=== PATIENT | female | born 1945 | race African-American/Black ===

== ENCOUNTER 2020-01-16 13:42 | Outpatient (RCR) | payer MEDICARE, SELFPAY ==
[2020-01-16 14:14] VITALS: BMI 49.4
== END 2020-04-03 10:19 | disposition home or self-care (01) ==
LOC: ANHWOC 13:42
PROVIDERS: PCP Internal Medicine; Visit Provider Internal Medicine
DX: L89.612 Pressure ulcer of right heel, stage 2 (principal)
CPT/HCPCS: 99212; G0463

== ENCOUNTER 2020-02-03 15:10 | Observation (INO) | payer MEDICARE, SELFPAY ==
[2020-02-03] VITALS (22 sets, daily range): BP systolic 134–144; BP diastolic 57–73; PULSE 63–84; RESP 11–24; TEMP 36.3–36.8; O2SAT 83–99; BMI 48.6
--- NOTE | ~2020-02-03 | XR_ITS ---
XR knee RT 3V 02/03/2020 18:24 Indication: Right leg pain and swelling Procedure: 3 views right knee Comparison: No prior studies for comparison. Findings: There is severe tricompartment osteoarthritis of the right knee. No acute fracture or traum atic malalignment. Large amount of diffuse subcutaneous edema. No foreign bodies. Impression: 1: Severe tricompartment osteoarthritis of the right knee. Reviewed, dictated and finalized at location A. Impression: 1: Severe tricompartment osteoarthritis of the right knee.
--- NOTE | ~2020-02-03 | XR_ITS ---
XR foot RT min 3V 02/03/2020 18:23 Indication: Right foot pain and swelling Procedure: 3 views of the right foot Comparison: No prior studies for comparison. Findings: There is a large amount of soft tissue swelling surrounding the foot. Osteopenia. No acute fracture or traumatic malalignment. Lisfranc joint is intact. No foreign bodies. Impression: 1: Large amount of soft tissue swelling of the right ankle and foot. No acute fracture. Reviewed, dictated and finalized at location A. Impression: 1: Large amount of soft tissue swelling of the right ankle and foot. No acute f racture.
--- NOTE | ~2020-02-03 | US_ITS ---
US renal BI 02/04/2020 16:45 Procedure: Realtime transabdominal ultrasound of the kidneys and bladder. Indication: Acute renal insufficiency Comparison: No prior studies for comparison. Findings: Renal echotexture is normal bilaterally without hydronephrosis, contour deforming mass or r enal calculus. The right kidney measures 10.2 cm and left kidney measures 10.1 cm. Bladder within no rmal limits. There is a Han catheter present. Impression: 1: Unremarkable renal ultrasound. No stones, masses or hydronephrosis. Reviewed, dictated and finalized at location A. Impression: 1: Unremarkable renal ultrasound. No stones, masses or hydronephrosis.
--- NOTE | ~2020-02-03 | XR_ITS ---
XR hip RT 2V w AP pelvis 02/03/2020 18:24 INDICATION: Right leg and hip pain and swelling PROCEDURE: AP pelvis and 2 views right hip COMPARISON: No prior studies for comparison. FINDINGS: Fracture, dislocation or subluxation is not identified. Pelvic rings are intact. The soft t issues appear within normal limits. No foreign bodies are identified. IMPRESSION: 1: NO ACUTE BONE OR JOINT ABNORMALITY IDENTIFIED. Reviewed, dictated and finalized at location A.
--- NOTE | ~2020-02-03 | US_ITS ---
EXAMINATION:US venous doppler LE RT INDICATION:Right leg pain and swelling TECHNIQUE: Multiple grayscale, color flow and Doppler images of the right lower extremity deep venous systems were obtained and reviewed. COMPARISON:No prior studies for comparison. FINDINGS: The common femoral, superficial femoral and popliteal veins demonstrate normal respiratory variation, augmentation and compressibility. Color flow is also seen within the posterior tibial, pe roneal, greater saphenous and profunda veins. IMPRESSION: 1: No lower extremity deep venous thrombosis. Reviewed, dictated and finalized at location A.
--- NOTE | 2020-02-03 16:35 | PC.NURSE ---
attempted to draw labs and place iv no success at this time charger operator aware, will inform provider when they sign up
--- NOTE | 2020-02-03 17:13 | ED.EXTPRO ---
HPI - Extremity Problem General Chief complaint: Extremity Problem,Nontraumatic <Bri Jackson PA-C - Last Filed: 02/03/20 21:55> Stated complaint: LEG SWELLING, PAIN, LYMPHADEMA <Bri Jackson PA-C - Last Filed: 02/03/20 21:55> Time Seen by Provider: 02/03/20 16:41 <KENYA Winston Last Filed: 02/03/20 21:55> Source: patient <KENYA Winston Last Filed: 02/03/20 21:55> Mode of arrival: ambulatory <KENYA Winston Last Filed: 02/03/20 21:55> Limitations: other (poot historian) <Bri Jackson PA-C - Last Filed: 02/03/20 21:55> History of Present Illness HPI Narrative: This is a 74 year old female that presents to the ER for right leg swelling since last night. Reports pain in the leg. Reports the pain has made it difficult for her to ambulate. Pain is mostly in the heel. No known injury or trauma. Denies fever, history of blood clots, chest pain or shortness of breath. <Bri Jackson PA-C - Last Filed: 02/03/20 21:55> Related Data Home medications: Home Medications Medication Instructions Recorded Confirmed cholecalciferol (vitamin D3) 125 125 mcg PO DAILY 10/24/19 mcg (5,000 unit) capsule cyanocobalamin (vitamin B-12) 500 500 mcg PO DAILY 10/24/19 mcg tablet <Bri Jackson PA-C - Last Filed: 02/03/20 21:55> Allergies/Adverse reactions: Allergies Allergy/AdvReac Type Severity Reaction Status Date / Time [place] And Derivatives Allergy Intermediate Itching Verified 02/03/20 15:21 hydrochlorothiazide AdvReac Intermediate Difficulty Verified 02/03/20 15:21 Breathing <KENYA Winston Last Filed: 02/03/20 21:55> Review of Systems Review of Systems: Narrative: CONSTITUTIONAL: Denies fever CARDIOVASCULAR: Denies chest pain RESPIRATORY: Denies dyspnea. SKIN: Denies rash MUSCULOSKELETAL: Denies joint pain, or myalgia. <Bri Jackson PA-C - Last Filed: 02/03/20 21:55> All systems reviewed & are unremarkable except as noted in HPI and below <Bri Jackson PA-C - Last Filed: 02/03/20 21:55> [facility] Past Medical History Medical History: Medical History (Updated 02/03/20 @ 21:53 by Bri Jackson PA-C) Colon cancer screening Essential hypertension Lymphedema Mild intermittent asthma without complication Morbid (severe) obesity due to excess calories <Bri Jackson PA-C - Last Filed: 02/03/20 21:55> Social History Social History: Social History Smoking status: Never smoker Second hand tobacco smoke exposure: No Alcohol intake: never Gender identity (if verbalized by the patient): Female <Bri Jackson PA-C - Last Filed: 02/03/20 21:55> Exam Narrative: Exam Narrative: GENERAL: Well-appearing, obese, and in no acute distress. HEAD: Normocephalic, atraumatic. EYES: EOMI. CHEST: Clear to auscultation. No respiratory distress. No wheezes rales or rhonchi HEART: Regular rate and rhythm. No murmur heard. Normal peripheral pulses. EXTREMITIES: Normal range of motion. Edema to the bilateral lower extremities (R>L). Normal left DP pulse, difficult to obtain in the right foot by palpation (was able to easily doppler). Right posterior calf with small ulceration with mild surrounding erythema SKIN: Warm, dry, no rash. NEURO: No focal deficits. Alert and oriented x3. PSYCH: Normal mood and affect <Bri Jackson PA-C - Last Filed: 02/03/20 21:55> Course AUTOMATION TEST ENGINEER/PA Physician Supervision For this patient encounter, I reviewed the AUTOMATION TEST ENGINEER or PA documentation, treatment plan, and medical decision making; and I had [id number] time with this patient. <Ana Queen MD - Last Filed: 02/03/20 20:49> Vital Signs Vital signs: Vital Signs Temperature 98.2 F 02/03/20 15:16 Pulse Rate 72 02/03/20 15:16 Respiratory Rate 17 02/03/20 15:16 Blood Pressure 144/65 H 02/03/20 15:16 Pulse Oximetry 98 02/03/20 15:16 Temperature 97.4 F L 02/03/20 15:36 Pul
[2020-02-03] MEDS: ACETAMINOPHEN 500 MG TABLET 1000 MG PO (17:21)
[2020-02-03 17:25] LABS: Basophils Percent Auto 0.3 % (0.2-1.2); Eosinophils Absolute Auto 0.2 K/mm3 (0-0.3); Eosinophils Percent Auto 1.6 % (0-4.4); Hematocrit 33.6 % (37.0-47.0); Hemoglobin 11.2 g/dL (12.0-15.0); Immature Granulocyte Absolute 0.02 K/mm3 (0.00-0.031); Immature Granulocyte Percent A 0.2 % (0-0.5); Immature Platelet Fraction Pct 8.3 % (0.9-11.2); Lymphocytes Absolute Auto 1.75 K/mm3 (0.9-3.2); Lymphocytes Percent Auto 16.9 % (18.3-44.2); Mean Corpuscular HGB Conc 33.3 g/dl (32-36); Mean Corpuscular Hemoglobin 28.8 pg (26-34); Mean Corpuscular Volume 86.4 fl (80-100); Mean Platelet Volume 12.8 fl (7.4-10.4); Monocytes Absolute Auto 0.7 K/mm3 (0.1-0.6); Monocytes Percent Auto 6.6 % (2.6-8.5); Neutrophils Absolute Auto 7.7 K/mm3 (1.3-6.7); Neutrophils Percent Auto 74.4 % (45.5-73.1); Platelet Count Result 201 k/mm3 (150-375); Red Blood Count 3.89 M/mm3 (4.2-5.4); Red Cell Distribution Width 14.6 % (11.5-14.5); White Blood Count 10.3 K/mm3 (4.5-10.0)
[2020-02-03 17:50] LABS: Erythrocyte Sedimentation Rate 27 mm/hr (0-20); NT Pro B Type Natriuretic Pept 101 PG/ML (5-100)
[2020-02-03 17:55] LABS: CRP 2.4 mg/dL (<1.0)
[2020-02-03 19:11] LABS: INR 1.3; Prothrombin Time 15.6 Seconds (11.1-14.7)
[2020-02-03 19:12] LABS: Partial Thromboplastin Time 33.6 SECONDS (22.3-36.8)
[2020-02-03 19:13] LABS: Anion Gap 11 mmol/L (8-16); Blood Urea Nitrogen 35 mg/dL (7-17); Calcium 9.2 mg/dL (8.4-10.2); Carbon Dioxide 22 mmol/L (22-30); Chloride 103 mmol/L (98-107); Estimated CRCL calculation 43 ml/min; Estimated Glomerular Filt Rate 49; Glucose 90 mg/dL (65-105); Potassium 3.5 mmol/L (3.4-5.0); Sodium 136 mmol/L (137-145)
[2020-02-03 19:14] LABS: Lactic Acid Reflex 1.5 mmol/L (0.7-2.1)
--- NOTE | 2020-02-03 20:50 | PC.NURSE ---
pt currently refusing antibiotics and fluids at this time. Would like to speak with KHANH Gregory per family and pt request.
[2020-02-03] MEDS: SODIUM CHLORIDE 0.9% IV 500 ML 999 ML IV CONT (21:37)
--- NOTE | 2020-02-03 23:14 | PC.NURSE ---
This patient, Varsha Griffith, was admitted to 3 [facility] Surg Room 301-01. Patient/family oriented to hospital policies and general routines including ID bracelet, bed and alarms, visiting hours, pain management, procedures, bathroom and other care routines, personal items, smoking policy, room service/diet, and visiting hours. Valuables list has been completed. Information on how to activate the Rapid Response Team has been discussed. Patient/Family are encouraged to report perceived risks to care and to ask questions if they do not understand what they are told or what they should do.
[2020-02-04 05:41] VITALS: BP 149/61; PULSE 71; RESP 20; TEMP 36.5; O2SAT 99
--- NOTE | 2020-02-04 06:22 | PC.NURSE ---
0440 assisted pt to bsc using huma steady, pt tried to urinate for over an hour and kept refusing this rn and director custom to assist her off bsc anmd back to bed insisting that she felt she was still urinating. when pt did finally allowus to assist her back to bed i then did a bladder scan that showed greater than 600. dr perea was informed and orders received for indwelling king cath insert. this rn inserted king using sterile technique, meeting no resistance got immediate clear yellow urine return, pt tolerated well.
[2020-02-04 06:40] LABS: Add Urine Microscopic? YES; Appearance Urine Clear (Clear); Bilirubin Urine Negative (Negative); Blood Urine Negative (Negative); Color Urine Straw (Yellow); Glucose Urine UA Negative (Negative); Ketones Urine Negative (Negative); Leukocyte Esterase Ur Negative LEU/UL (Negative); Nitrate Urine Negative (Negative); Protein Urine Negative (Negative); Specific Grav Ur 1.011 (1.001-1.035); Squamous Epithelial Cell Urine Rare /hpf (Few); Urobilinogen Urine Negative mg/dL (<2.0); WBC Urine 0-3 /hpf
[2020-02-04 09:54] VITALS: PULSE 68
[2020-02-04] MEDS: carvediloL 25 MG TABLET PO ×2 (09:54→22:12)
[2020-02-04] MEDS: LOSARTAN POTASSIUM 100 MG TABLET PO (09:55)
[2020-02-04] MEDS: INDAPAMIDE 1.25 MG TABLET 2.5 MG PO (09:55)
[2020-02-04] MEDS: FUROSEMIDE 40 MG TABLET PO (09:55)
[2020-02-04 14:00] VITALS: BP 120/55; PULSE 67; RESP 16; TEMP 37.1; O2SAT 99
--- NOTE | 2020-02-04 15:23 | PCDIET ---
Screen for pressure ulcer received. Wound nurse and pt reports that these are blister on her heels, not PU. She is eating 60% of meals. States appetite good. Agree with heart healthy diet. We will follow weekly to monitor for adequate PO intake.
--- NOTE | 2020-02-04 15:38 | PM.IMHP ---
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 She does not remember any trauma to that area. Denies fever or chills, no nausea , vomiting, no diarrhea, no cough, no chest pain. She was found to have urinary retention in the ER, a Han catheter was placed with almost 600 ml output. Currently other than the pain on her right heel she does not have more complains, she usually ambulates with a wheeled walker but lately she has found that difficult to do due to her pain, she denies falls. Review of Systems Review of Systems: All systems reviewed & are unremarkable except as noted in HPI and below PMFSH Past Medical History Medical History Colon cancer screening Essential hypertension Lymphedema Mild intermittent asthma without complication Morbid (severe) obesity due to excess calories Social History Social History Smoking status: Never smoker Second hand tobacco smoke exposure: No Alcohol intake: never Substance use: never Substance use type: does not use Living arrangements: alone Occupation/Education: retired Gender identity (if verbalized by the patient): Female Spiritual care concerns: No Meds Home Medications and Allergies Home Medications Medication Instructions Recorded Confirmed Type losartan 100 mg tablet 100 mg PO DAILY #90 tablet 10/24/19 02/03/20 Rx carvedilol 25 mg tablet 25 mg PO Q12H #180 tablet 01/01/20 02/03/20 Rx furosemide 40 mg tablet 40 mg PO QAM #30 tablet 01/20/20 02/03/20 Rx potassium chloride 20 mEq 20 meq PO DAILY #30 tablet 01/20/20 02/03/20 Rx tablet,extended release(part/cryst) indapamide 2.5 mg PO BID 02/03/20 02/03/20 History Allergies Allergy/AdvReac Type Severity Reaction Status Date / Time [place] And Derivatives Allergy Intermediate Itching Verified 02/03/20 15:21 hydrochlorothiazide AdvReac Intermediate Difficulty Verified 02/03/20 15:21 Breathing Vital Signs Vital Signs - 24 hr 02/03/20 16:10 02/03/20 16:42 02/03/20 16:45 Temperature Pulse Rate 69 66 65 Respiratory Rate 16 14 13 Blood Pressure Pulse Oximetry 02/03/20 17:18 02/03/20 17:30 02/03/20 17:52 Temperature Pulse Rate 66 71 Respiratory Rate 17 16 Blood Pressure Pulse Oximetry 98 95 89 L 02/03/20 18:00 02/03/20 18:20 02/03/20 18:30 Temperature Pulse Rate 63 76 84 Respiratory Rate 11 L 16 19 Blood Pressure Pulse Oximetry 96 83 L 02/03/20 18:46 02/03/20 19:02 02/03/20 19:16 Temperature Pulse Rate 67 67 69 Respiratory Rate 18 15 20 Blood Pressure Pulse Oximetry 02/03/20 19:30 02/03/20 20:24 02/03/20 20:30 Temperature Pulse Rate 75 77 76 Respiratory Rate 14 19 24 H Blood Pressure Pulse Oximetry 02/03/20 20:45 02/03/20 21:30 02/03/20 21:45 Temperature Pulse Rate 77 77 76 Respiratory Rate 17 19 14 Blood Pressure Pulse Oximetry 02/03/20 23:00 02/03/20 23:03 02/04/20 05:41 Temperature 97.6 F 97.7 F Pulse Rate 71 81 71 Respiratory Rate 20 19 20 Blood Pressure 134/57 L 136/73 149/61 H Pulse Oximetry 97 94 99 02/04/20 09:54 Temperature Pulse Rate 68 Respiratory Rate Blood Pressure Pulse Oximetry Exam Const: General: comfortable and no acute distress HENMT: General nose exam: Normal nares present Mouth: Yes moist mucous membranes Eyes: General: appearance normal, both eyes and all related structures Neck: Neck: supple and no JVD Resp: Effort & Inspection: normal respiratory effort Auscultation: clear to auscultation bilaterally and diminished lung sounds Cardio: Rate: regular rate Rhythm:
[2020-02-04 22:00] VITALS: BP 123/53; PULSE 68; RESP 18; TEMP 36.6; O2SAT 99
[2020-02-04 22:12] VITALS: PULSE 68
[2020-02-04] MEDS: HEPARIN SODIUM 5,000 UNITS/ML VIAL 5000 UNITS SUB-Q (22:13)
[2020-02-05] MEDS: ACETAMINOPHEN 325 MG TABLET 650 MG PO ×2 (01:20→13:30)
[2020-02-05 06:00] VITALS: BP 127/57; PULSE 62; RESP 20; TEMP 36.4; O2SAT 98
[2020-02-05 06:08] LABS: SARS-CoV-2 RNA PCR Negative
[2020-02-05 06:15] LABS: Basophils Percent Auto 0.3 % (0.2-1.2); Eosinophils Absolute Auto 0.2 K/mm3 (0-0.3); Eosinophils Percent Auto 2.3 % (0-4.4); Hemoglobin 9.2 g/dL (12.0-15.0); Immature Granulocyte Absolute 0.02 K/mm3 (0.00-0.031); Immature Granulocyte Percent A 0.3 % (0-0.5); Lymphocytes Absolute Auto 1.73 K/mm3 (0.9-3.2); Lymphocytes Percent Auto 24.9 % (18.3-44.2); Mean Corpuscular HGB Conc 32.9 g/dl (32-36); Mean Corpuscular Hemoglobin 28.5 pg (26-34); Mean Corpuscular Volume 86.7 fl (80-100); Mean Platelet Volume 10.7 fl (7.4-10.4); Monocytes Absolute Auto 0.5 K/mm3 (0.1-0.6); Monocytes Percent Auto 6.8 % (2.6-8.5); Neutrophils Absolute Auto 4.5 K/mm3 (1.3-6.7); Neutrophils Percent Auto 65.4 % (45.5-73.1); Platelet Count Result 181 k/mm3 (150-375); Red Blood Count 3.23 M/mm3 (4.2-5.4); Red Cell Distribution Width 14.4 % (11.5-14.5); White Blood Count 6.9 K/mm3 (4.5-10.0)
[2020-02-05 06:35] LABS: Anion Gap 3 mmol/L (8-16); Blood Urea Nitrogen 23 mg/dL (7-17); Calcium 8.5 mg/dL (8.4-10.2); Carbon Dioxide 30 mmol/L (22-30); Chloride 104 mmol/L (98-107); Estimated CRCL calculation 60 ml/min; Estimated Glomerular Filt Rate > 60; Glucose 103 mg/dL (65-105); Sodium 137 mmol/L (137-145)
--- NOTE | 2020-02-05 07:44 | PM.IMPN ---
Progress Note: A&P Assessment and Plan (1) Cellulitis: Qualifiers: Laterality: right Site of cellulitis: extremity Site of cellulitis of extremity: lower extremity Qualified Code(s): L03.115 - Cellulitis of right lower limb Code(s): L03.90 - Cellulitis, unspecified Status: Acute Assessment and Plan: Continue cefazolin. No evidence of periosteal elevation or other signs of osteomyelitis on x ray. (2) AZEB (acute kidney injury): Code(s): N17.9 - Acute kidney failure, unspecified Status: Acute Assessment and Plan: US did not show hydronephrosis, or signs of CKD. Renal function is back to normal. It might be related to her urinary retention. UA did not show proteinuria or casts. We will try to remove the urinary catheter, check bladder US if no spontaneous voiding in 6 hours. (3) Lymphedema: Code(s): I89.0 - Lymphedema, not elsewhere classified Status: Acute Assessment and Plan: Continue lasix. She does not want to take indapamide, I doubt that she has been complaint with this medication at home. She thinks it makes her urinate all night I explained to her that that's the purpose of the medicine ideally not at night but that's how is supposed to work. (4) Decreased mobility: Code(s): R26.89 - Other abnormalities of gait and mobility Status: Acute Assessment and Plan: Likely multifactorial due to morbid obesity, severe OA, neuropathy. PT to eval. Patient reluctant to go home due to difficulty ambulating with foot pain, might need to go to rehab? (5) Leukocytosis: Code(s): D72.829 - Elevated white blood cell count, unspecified Status: Acute Assessment and Plan: Likely related to the underlying cellulitis. White count is back to normal. (6) Benign essential hypertension: Code(s): I10 - Essential (primary) hypertension Status: Acute Assessment and Plan: Resume home medications. Bp under control. (7) Morbid (severe) obesity due to excess calories: Code(s): E66.01 - Morbid (severe) obesity due to excess calories Status: Acute Subjective Date/time seen: Pt seen and examined, she has no major complains today other than still feeling weak and having a hard time ambulating due to pain on her right foot. She is reluctant about going home. 02/05/20 07:44 Review of Systems Review of Systems: All systems reviewed & are unremarkable except as noted in HPI and below Exam Const: General: comfortable and no acute distress HENMT: General nose exam: Normal nares present Mouth: Yes moist mucous membranes Eyes: General: appearance normal, both eyes and all related structures Neck: Neck: supple and no JVD Resp: Effort & Inspection: normal respiratory effort Auscultation: clear to auscultation bilaterally and diminished lung sounds Cardio: Rate: regular rate Rhythm: regular rhythm Other: No bradycardia or tahycardia GI: Auscultation: normal bowel sounds Other: Obese, no tenderness. Urinary Catheter: Urinary Catheter: patent and draining and urine clear Skin: Other: She has erythema on her right heel with an area of mild dark discoloration, no purulent discharge, no fluctuations or crepitations. The are is very tender to palpation. Neuro: Cognition (Neuro): normal cognition Speech: normal speech Motor exam (neuro): 5/5 motor strength present throughout and Normal motor muscle tone present throughout Extrem: Other: Lymphedema both extremities. Psych: Affect: normal affect Objective Data Vital Signs Vital Signs: Vital Signs - 24 hr 02/04/20 09:54 02/04/20 14:00 02/04/20 22:00 Temperature 98.7 F 97.9 F Pulse Rate 68 67 68 Respiratory Rate 16 18 Blood Pressure 120/55 L 123/53 L Pulse Oximetry 99 99 02/04/20 22:12 02/05/20 06:00 Temperature 97.6 F Pulse Rate 68 62 Respiratory Rate 20 Blood Pressure 127/57 L Pulse Oximetry 98 Intake/Outpu
[2020-02-05 08:44] VITALS: PULSE 64
[2020-02-05] MEDS: carvediloL 25 MG TABLET PO (08:44)
[2020-02-05] MEDS: LOSARTAN POTASSIUM 100 MG TABLET PO (08:45)
[2020-02-05] MEDS: HEPARIN SODIUM 5,000 UNITS/ML VIAL 5000 UNITS SUB-Q (08:45)
[2020-02-05] MEDS: FUROSEMIDE 40 MG TABLET PO (08:45)
[2020-02-05 10:30] LABS: Hematocrit 31.9 % (37.0-47.0); Hemoglobin 10.5 g/dL (12.0-15.0)
--- NOTE | 2020-02-05 13:18 | PM.DS ---
DS: Admitting Diagnosis Admitting Diagnosis Admitting Diagnosis: Cellulitis, lymphedema, decreased mobility DS: Discharge Diagnosis Discharge Diagnosis (1) Cellulitis: Qualifiers: Laterality: right Site of cellulitis: extremity Site of cellulitis of extremity: lower extremity Qualified Code(s): L03.115 - Cellulitis of right lower limb Code(s): L03.90 - Cellulitis, unspecified Status: Acute (2) Leukocytosis: Code(s): D72.829 - Elevated white blood cell count, unspecified Status: Acute (3) AZEB (acute kidney injury): Code(s): N17.9 - Acute kidney failure, unspecified Status: Acute (4) Lymphedema: Code(s): I89.0 - Lymphedema, not elsewhere classified Status: Acute (5) Decreased mobility: Code(s): R26.89 - Other abnormalities of gait and mobility Status: Acute (6) Uncontrolled hypertension: Code(s): I10 - Essential (primary) hypertension Status: Acute (7) Morbid (severe) obesity due to excess calories: Code(s): E66.01 - Morbid (severe) obesity due to excess calories Status: Acute (8) Benign essential hypertension: Code(s): I10 - Essential (primary) hypertension Status: Acute DS: Summary Hospital Course Reason for hospitalization: Weakness , right foot pain. Hospital Course: 74 yo with lymphedema, morbid obesity and HTN presented with right heel pain and difficulty ambulating. She was found to have cellulitis around a dark discoloration on her right heel, she did not have any evidence of osteomyelitis on x ray. She received cefazolin with some improvement, no fever, her leukocytosis has resolved. She will discharge to a [facility] today on 5 more days of keflex, she should get a referral to see podiatry as outpatient. She is refusing to take her indapamide for instance we will stop it. She had some evidence of AZEB on admission, probably related to urinary retention, her renal function is back to normal today,renal ultrasound was unremarkable. She will get a voiding trial prior to discharge, if unsuccessful she will need the catheter back in and follow up with urology as outpatient. Status at Discharge Overall status at discharge: patient is progressing back to baseline Time Spent with Patient Time attestation: Total time spent providing and/or coordinating discharge services: Time spent: Greater than 30 minutes Exam Const: General: comfortable and no acute distress HENMT: General nose exam: Normal nares present Mouth: Yes moist mucous membranes Eyes: General: appearance normal, both eyes and all related structures Neck: Neck: supple and no JVD Resp: Effort & Inspection: normal respiratory effort Auscultation: clear to auscultation bilaterally and diminished lung sounds Cardio: Rate: regular rate Rhythm: regular rhythm Other: No bradycardia or tahycardia GI: Auscultation: normal bowel sounds Other: Obese, no tenderness. Urinary Catheter: Urinary Catheter: patent and draining and urine clear Skin: Other: She has erythema on her right heel with an area of mild dark discoloration, no purulent discharge, no fluctuations or crepitations. The are is very tender to palpation. Neuro: Cognition (Neuro): normal cognition Speech: normal speech Motor exam (neuro): 5/5 motor strength present throughout and Normal motor muscle tone present throughout Extrem: Other: Lymphedema both extremities. Psych: Affect: normal affect DS: Data Data Completed and Pending Labs on day of discharge: Labs from last 24 hours 02/05/20 02/05/20 02/05/20 10:12 06:09 06:09 WBC 6.9 RBC 3.23 L Hgb 10.5 L 9.2 L Hct 31.9 L 28.0 L MCV 86.7 MCH 28.5 MCHC 32.9 RDW 14.4 Plt Count 181 MPV 10.7 H Immature Gran % (Auto) 0.3 Neut % (Auto) 65.4 Lymph % (Auto) 24.9 [place] % (Auto) 6.8 Eos % (Auto) 2.3 Baso % (Auto) 0.3 Lymph # (Auto) 1.73 [place] # (Auto) 0.5 Eos # (Auto) 0.2
[2020-02-05 14:00] VITALS: BP 113/88; PULSE 76; RESP 20; TEMP 36.5; O2SAT 100
--- NOTE | 2020-02-05 18:53 | PC.NURSE ---
Report called to Jannette Gerber at 1530.
== END 2020-02-05 18:47 ==
LOC: ANHED 16:41 → ANH3MEDSUR 21:53
PROVIDERS: Physician Assistant; Admitting Provider Internal Medicine; Emergency Provider Emergency Medicine; PCP Internal Medicine; Visit Provider Hospitalist
DX: L03.115 Cellulitis of right lower limb (principal); Z20.828 Contact with and (suspected) exposure to other viral communicable diseases; E66.01 Morbid (severe) obesity due to excess calories; I10 Essential (primary) hypertension; R33.9 Retention of urine, unspecified; R26.89 Other abnormalities of gait and mobility; Z68.42 Body mass index [BMI] 45.0-49.9, adult; M79.604 Pain in right leg; R60.9 Edema, unspecified
CPT/HCPCS: 36415; 73502; 73562; 73630; 76775; 80048; 81001; 83605; 83880; 85014; 85018; 85025; 85055; 85610; 85652; 85730; 86140; 87635; 93971; 96365; 96366; 96372; 97110; 97161; 97165; 99285; A9270; C9803; G0378; J0690; J1644; J7040; U0003

== ENCOUNTER 2025-03-18 10:23 | Outpatient (CLI) | payer MEDICARE, SELFPAY ==
--- NOTE | ~2025-03-18 | MMUS_ITS ---
EXAMINATION: MM diagnostic ryan BI w swapnil, US breast BI limited INDICATION: 80-year old female; presents for evaluation of right breast lump which has been present for one year. COMPARISON: 05/06/2014 TECHNIQUE: Digital breast tomosynthesis MLO and CC views of both breasts and ML and spot compression CC and ML views of Right breast were obtained with computer-aided detection to assist in interpretation of the study. FINDINGS: There are scattered areas of fibroglandular density. A spiculated high density mass containing pleomorphic calcifications is seen in the superior lateral, 10:00 at posterior third location in the right breast. The abnormal calcifications are present within the mass and extend beyond posteriorly spanning 4.8 cm in largest length. This lesion correlates to the area of palpable lump. The overlying skin is focally thickened and the tumor mass comes within 1 to 2 mm of the skin. There is a superficial circumscribed mass seen in the superior lateral at anterior depth in the left breast. There are no other mass, architectural distortion or suspicious microcalcifications identified in either breast. BILATERAL BREAST ULTRASOUND FINDINGS: Targeted sonographic evaluation of the palpable lump and areas of concern on the mammogram was completed. Right breast: At 10:00, 11 cm from the nipple there is a markedly hypoechoic mass containing several echogenic foci that represent calcifications which measure 3.8 x 3.6 x 3.5 cm, with irregular margins and internal vascularity. This lesion correlates to the palpable lump and mammographic abnormality. Evaluation of the right axilla showed an abnormal lymph node that has lost this central fatty hilum, round in shape measuring 1.2 x 1.2 x 1.2 cm. Left breast: At 2:00, 3 cm from the nipple there is a 0.2 x 0.6 x 0.2 cm anechoic circumscribed mass compatible with a cyst. This lesion correlates to the mammographic finding. IMPRESSION: 1. Highly suspicious RIGHT breast 3.8 cm calcified mass at 10:00 location that correlates to palpable and mammography finding. Pleomorphic calcifications within the mass and extends approximately 4.8 cm beyond the mass posteriorly. Recommend biopsy. 2. Right axillary lymphadenopathy suspicious for metastasis. 3. No mammographic or sonographic evidence of malignancy within the left breast. RECOMMENDATIONS: 1. Ultrasound-guided core needle biopsy of right breast mass at 10:00, 11 cm from the nipple. 2. Ultrasound-guided core needle biopsy of right axillary lymph node. BI-RADS 5, HIGHLY SUSPICIOUS FOR MALIGNANCY Reviewed, dictated and finalized at location B. IMPRESSION: 1. Highly suspicious RIGHT breast 3.8 cm calcified mass at 10:00 location that correlates to palpable and mammography finding. Pleomorphic calcifications wit hin the mass and extends approximately 4.8 cm beyond the mass posteriorly. Keegan mmend biopsy. 2. Right axillary lymphadenopathy suspicious for metastasis. 3. No mammographic or sonographic evidence of malignancy within the left breas t. RECOMMENDATIONS: 1. Ultrasound-guided core needle biopsy of right breast mass at 10:00, 11 cm fr om the nipple. 2. Ultrasound-guided core needle biopsy of right axillary lymph node. BI-RADS 5, HIGHLY SUSPICIOUS FOR MALIGNANCY
--- OUTSIDE RECORDS SUMMARY | 2025-03-18 11:24 | XMS_ITS | Clinical Summary ---
Author Organization [facility] Address [facility]ly [facility] [place] [address] Care Team Providers Care Acetylene Plant Operator Name Role Phone Barry Alva MD Primary Care Provider [phone] Allergies Active Allergy Reactions Criticality Noted Date Comments [place] Unknown 10/23/2018 Amlodipine Shakiness 10/09/2019 Medications losartan 100 MG tablet Take 100 mg by mouth daily. 0 Active indapamide 2.5 MG tablet Take 5 mg by mouth daily. 9 Active D3-50 1.25 MG (70591 UT) capsule Take 50,000 Units by mouth once a week. 9 Active albuterol sulfate HFA 108 (90 Base) MCG/ACT inhaler Inhale 2 puffs into the lungs every 4 (four) hours as needed for Wheezing or Shortness of breath. 1 Inhaler 1 0 Active carvedilol 25 MG tabletIndications :Essential hypertension Take 1 tablet (25 mg total) by mouth 2 (two) times daily. 60 tablet 1 0 Active Active Problems No known active problems Resolved Problems Problem Noted Date Diagnosed Date Resolved Date Suspected COVID-19 virus infection 10/07/2019 02/21/2020 Social History Tobacco Use Types Packs/Day Years Used Date Smoking Tobacco: Never Smokeless Tobacco: Never Alcohol Use Standard Drinks/Week Comments No 0 (1 standard drink = 0.6 oz pur e alcohol) AUDIT-C Answer Date Recorded Frequency of Alcohol Consumption Never 10/23/2018 Average Number of Drinks Not on file 019 Frequency of Binge Drinking Not on file 10/10 Comments No Sex and Gender Information Value Date Recorded Sex Assigned at Not on file Legal Sex Female 7:10 PM CDT Gender Identity Not on file Sexual Orientation Not on file Last Filed Vital Signs Vital Sign Reading Time Taken Comments Blood Pressure 134/89 10/12/2019 8:19 AM CDT Pulse 79 10/11/2019 5:21 PM CDT Temperature 36.7 C (98 F) 10/12/2019 8:19 AM CDT Respiratory Rate 20 10/12/2019 8:19 AM CDT Oxygen Saturation 98% 10/12/2019 8:19 AM CDT Inhaled Oxygen Concentration - - Weight 127.9 kg (281 lb 15.5 oz) 10/12/2019 5:00 AM CDT Height 157.5 cm (5' 2) 10/07/2019 12:2 6 AM CDT Body Mass Index 51.57 10/07/2019 12:26 AM CDT Plan of Treatment Health Maintenance Due Date Last Done Comments DTaP, Tdap and Td Vaccines ( 1 - Tdap) 02/12/1964 Pneumococcal Vaccine: 50+ Ye ars (1 of 1 - PCV) 1995 Zoster Vaccines (1 of 2) 1995 Annual Medicare Wellness Visit 2010 Dexa Scan (General) 2010 RSV Immunization or 60+ Years (1 - 1-dose 75+ series) 02/12/2020 COVID-19 Vaccine (1 - 2023-2 5 season) 2025 Meningococcal B Vaccine Aged Out No l onger eligible based on patient's age to complete this topic Meningococcal Vaccine Aged Out No gigi zheng eligible based on patient's age to complete this topic RSV Immunizations Under 20 Months Aged Out No longer eligible based on patient's age to complete this topic Insurance [facility] [employer] [address] MEDICARE [facility] MEDIC[facility] Advance Directives * Full Code (Latest Code Status on File) Date Activated Date Inactivated Comments 10/07/2019 5:32 AM 10/12/2019 3:36 PM Care Teams Acetylene Plant Operator Relationship Specialty Start Date End Date Barry Alva MD [id number] [place] [address] PCP - General INTERNAL MEDICINE 10/23/18
--- OUTSIDE RECORDS SUMMARY | 2025-03-18 11:24 | XMS_ITS | Encounter Summary ---
Author Organization [facility] Healthcare Address [address] [place] [address] Care Team Providers Care Personal Lines Agent Name Role Phone Jessee Frias MD Primary Care Provider [phone] Encounter Details Date Type Department Care Team (Late st Contact Info) Description 03/12/2025 Results Follow-Up [facility] Primary Care at [address] [address] Jessee Frias MD [address] [place] [address] [address] [place] [address] Urine culture Urine, clean voided, Hepatitis B Surface Antigen Blood, Hepatitis B core antibody, total Blood, Additional followed-up results: 8 Social History Tobacco Use Types Packs/Day Years Used Date Smoking Tobacco: Never Passive Smoke Exposure: Never Smokeless Tobacco: Never AUDIT-C Answer Date Recorded Q1: How often do you have a drink containing alcohol? Never 01/04/2023 Q2: How many drinks containi ng alcohol do you have on a typical day when you are drinking? Patient does not drink Q3: How often do you have si x or more drinks on one occasion? Never 01/04/2023 PHQ-2 Answer Date Recorded PHQ-2 Total Score (If total score is 3 or more points, staff should administer the PHQ-9) 0 03/11/2025 Comments Unknown Sex and Gender Information Value Date Recorded Sex Assigned at Not on file Legal Sex Female 6:41 PM [employer] Gender Identity Not on file Sexual Orientation Not on file documented as of this encounter Miscellaneous Notes * Telephone Encounter - Aneta Cannon - 03/14/2025 10:08 AM CDT Medical Question/Miscellaneous Caller???s Concern: called back and epic cadence analyst relayed message and pt had no questions. Does message need to be routed? No documented in this encounter Plan of Treatment Not on file documented as of this encounter Visit Diagnoses Not on filedocumented in this encounter Care Teams Personal Lines Agent Relationship Specialty Start Date End Date Jessee Frias MD [facility] [address] [address] PCP - General Family Medicine 01/04/23 documented as of this encounter
--- OUTSIDE RECORDS SUMMARY | 2025-03-18 11:24 | XMS_ITS | Clinical Summary ---
Author Organization [facility] Address [address] [place] [address] Phone Care Team Providers Care Plant Physiologist Name Role Phone Jessee Frias MD Primary Care Provider [phone] Allergies Active Allergy Reactions Criticality Noted Date Comments Amlodipine Other (See comments) Low 10/09/2019 [place] Additives Rash Medium 10/23/2018 Hydrochlorothiazide Rash,Nausea only Medium 05/30/2023 Hydrocortisone-Acetic Acid Rash,Nausea only Medium Medications cholecalciferol (VITAMIN D-3) 77684 unit capsule Take 1 capsule (10,000 Units total) by mouth daily Active albuterol HFA (PROVENTIL HFA,VENTOLIN HFA,PROAIR HFA) 90 mcg/actuation inhalerIndicatio ns:Acute Asthma Attack Inhale 2 puffs every 4 (four) hours as needed for wheezing or shortness of breath 1 each 3 05/30/20 23 Active losartan (COZAAR) 50 mg tabletIndication s:Primary hypertension Take 1 tablet (50 mg total) by mouth daily 30 tablet 11 03/12/20 25 026 Active urea 39 % creamIndications :Hyperkeratosis Apply topically to lower legs daily 227 g 1 01/19/20 23 025 Discontinued potassium chloride ER 20 mEq CR tablet Take 1 tablet (20 mEq total) by mouth daily 90 tablet 1 01/21/20 23 025 Discontinued carvediloL (COREG) 25 mg tablet Take 1 tablet (25 mg total) by mouth every 12 (twelve) hours 90 tablet 1 06/16/19 24 025 Discontinued Active Problems Problem Noted Date Diagnosed Date Hypertension 05/30/2023 Vitamin D deficiency 05/30/2023 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 Assessment & Plan (01/04/2023 12:32 PM CDT): BMI Follow-up includes: nutrition counseling, exercise counseling, and education provided. Encounter for medical examination to establish c are 01/04/2023 Assessment & Plan (01/04/2023 1:23 PM CDT): A(n) initial Medicare Annual Wellness Visit has been performed today. Varsha Griffith is not up to date on screening tests. She is in need of DEXA, Hepatitis C screening, and Cholesterol screening. She is not up to date on needed preventative vaccinations; She is in need of Tdap/Td, Pneumonia (Prevnar-13 or Pneumovax-23), and Zoster. We discussed healthy lifestyle habits, educational material has been given. Medications reviewed, changes documented as per the medical record and discussed with patient along with risks vs benefits. Educational handouts- approaches may be different based on the source. I do think calorie counting has the most sustainable success. WW is kind of based on this approach WHICHEVER method, I would incorporate the DASH plan regardless, as it shows good efficacy with hypertension control Awaiting labs BP is mildly elevated today; I would like to get the labwork before adjusting however Return in 1 month Hyperkeratosis 01/04/2023 Encounters Date Type Department Care Team Description 03/12/2025 Results Follow-Up [facility] Primary Care at [address] [address] Jessee Frias MD Urine culture Urine, clean voided, Hepatitis B Surface Antigen Blood, Hepatitis B core antibody, total Blood, Additional followed-up results: 8 03/11/2025 4:10 PM CDT Lab [place] [id number] UTI symptoms; Need for hepatitis B screening test; Primary hypertension; Vitamin D deficiency 03/11/2025 4:09 PM CDT - 03/11/2025 11:59 PM CDT [place] [address] Discharge Disposition: Discharge to home or self care 03/11/2025 2:15 PM CDT Office Visit [facility] Primary Care at [address] [address] Jessee Frias MD Class 3 severe obesity due to excess calories without serious comorbidity with body mass index (BMI) of 45.0 to 49.9 in adult (Primary Dx); Primary hypertension; Vitamin D deficiency; Class 3 severe obesity due to excess calories with serious comorbidity and body mass index (BMI) of 40.0 to 44.9 in adult; Encounter for screening mammogram for breast cancer; Need for hepatitis B screening test; Screening for osteoporosis; roasterman (current) use of inhaled steroids; Hard mass of breast; Screening mammogram for breast cancer; Unspecified lump in the right breast, overlapping quadrants; UTI symptoms from Last 3 Months Immunizations Immunization Administration Dates Next Due Influenza, Quadrivalent, Hig h Dose, Preservative Free, Intrr 05/30/2023 Influenza, Unspecified 06/12/2022(Deferr ed: Patient Refused),06/12/2021(Deferred: Patient Refused) Pneumococcal Conjugate Pcv20 01/04/2023 Surgical History Surgery Date Site/Laterality Comments TONSILLECTOMY HYSTERECTOMY DILATION AND CURETTAGE OF UTERUS LAPAROSCOPY Medical History Medical History Date Comments 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 Hypertension 05/30/2023 Asthma 05/30/2023 Vitamin D deficiency 05/30/2023 Family History Medical History Relation Name Comments Heart attack Father Heart disease Father Liver disease Father Hernia Mother tumor Mother Relation Name Status Comments Father Mother Social History Tobacco Use Types Packs/Day Years Used Date Smoking Tobacco: Never Passive Smoke Exposure: Never Smokeless Tobacco: Never Tobacco Cessation:Counseling Given: Not Answered AUDIT-C Answer Date Recorded Q1: How often [...] on file Legal 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 Gender Identity Not on file Sexual Orientation Not on file Obstetrics History Last Filed Vital Signs Vital Sign Reading Time Taken Comments Blood Pressure 150/90 03/11/2025 2:32 PM CDT Pulse 106 03/11/2025 2:32 PM CDT Temperature 36.1 C (96.9 F) 03/11/2025 2:32 PM CDT Respiratory Rate 20 03/11/2025 2:32 PM CDT Oxygen Saturation 96% 03/11/2025 2:32 PM CDT Inhaled Oxygen Concentration - - Weight 118.4 kg (261 lb) 03/11/2025 2:32 PM CDT Height 157.5 cm (5' 2) 03/11/2025 2:32 PM CDT Body Mass Index 47.74 03/11/2025 2:32 PM CDT Plan of Treatment Health Maintenance Due Date Last Done Comments Osteoporosis Screening-Bone Density Scan 1945 DTaP/Tdap/Td Vaccine (1 - Tdap) 02/12/1956 Well Visit 65+ 01/05/2024 01/04/2023 Influenza Vaccine (#1) 2025 05/30/2023 Covid-19 Vaccine (3 - 2024-2 6 season) 2026 11/28/2020, 10/29/2020 Postponed from 02/10/2025 (Patient declined, but will receive in the future) Depression Screening 03/11/2026 03/11/2025, 05/30/2023, 01/04/2023 Fall Risk Assessment 03/11/2026 03/11/2025, 01/04/2023 Zoster Vaccine (1 of 2) 03/11/2026 Post poned from 1995 (Insurance / Financial) Pneumococcal vaccine 65+ Completed 01/04/2023 Hepatitis B Screening Completed 03/11/2025 Procedures Procedure Name Priority Date/Time Associated Diagnosis Comments EGFR Routine 03/11/2025 4:18 PM CDT Primary hypertension DIFFERENTIAL AUTO Routine 03/11/2025 4:1 8 PM CDT Primary hypertension VITAMIN D 25 HYDROXY Routine 03/11/2025 4:18 PM CDT Vitamin D deficiency THYROID FUNCTION CASCADE Routine 03/11/2025 4:18 PM CDT Primary hypertension LIPID PANEL Routine 03/11/2025 4:18 PM CDT Primary hypertension COMPREHENSIVE METABOLIC PANEL Routine 03/11/2025 4:18 PM CDT Primary hypertension CBC WITH AUTO DIFFERENTIAL Routine 03/11/2025 4:18 PM CDT Primary hypertension HEPATITIS B SURFACE ANTIBODY (IMMUNE STATUS) Routine 03/11/2025 4:18 PM CDT Need for hepatitis B screening test HEPATITIS B CORE ANTIBODY, TOTAL Routine 03/11/2025 4:18 PM CDT Need for hepatitis B screening test HEPATITIS B SURFACE ANTIGEN Routine 03/11/2025 4:18 PM CDT Need for hepatitis B screening test URINE CULTURE Routine 03/11/2025 4:18 PM CDT UTI symptoms POCT URINALYSIS, AUTO W/O SCOPE Routine 03/11/2025 3:45 PM CDT UTI symptoms from Last 3 Months Results * eGFR (03/11/2025 4:18 PM CDT) Pathologist [facility] eGFR 79 >=60 mL/min/1. 73 m2 Comment: Interpretive Data Reference Interval Normal >/= 90 mL/min/1.73m2 Mildly decreased* 60 - 89 mL/min/1.73m2 Mildly to moderately decreased 45 - 59 mL/min/1.73m2 Moderately to severely decreased 30 - 44 mL/min/1.73m2 Severely decreased 15 - 29 mL/min/1.73m2 Kidney Failure < 15 mL/min/1.73m2 *Relative to young adult level Estimated glomerular filtration rate is determined by the 2020 CKD-EPI equation recommended by the National Kidney Foundation (A Unifying Approach to GFR Estimation: Recommendations of the NKF-ASK Task Force on Reassessing the Inclusion of Race in Diagnosing Kidney Disease, JASN 2020). The CKD-EPI equation should not be used for patients with unstable renal function and has not been validated in children and those over 70. Current interpretive data was last reviewed 2021. Blood 03/11/2025 4:18 PM CDT 03/11/2025 6:21 PM CDT us Jessee Frias MD LAB BLOOD ORDERABLES Final Result [facility] [address] [facility] Department [place] [address] * (ABNORMAL) Differential, auto (03/11/2025 4:18 PM CDT) [facility] Neutrophil abs 7.61(H) 1.50 - 6.50 K/cumm Imm gran abs 0.06 0.00 - 0.10 K/cumm [facility] Lymphocyte abs 1.45 0.80 - 3.30 K/cumm [facility] Monocyte abs 0.56 0.20 - 0.80 K/cumm [facility] Eosinophil abs 0.03 0.00 - 0.50 K/cumm [facility] Basophil abs 0.02 0.00 - 0.10 K/cumm [facility] Neutrophil pct 78.2 % [facility] Comment: Interpretive Data Percent cell count reference ranges are not reported, since discordance with absolute values may lead to misinterpretation of CBC data. Current Interpretive Data was last revised on 2017. Imm gran pct 0.6 % [facility] Comment: Interpretive Data Percent cell count reference ranges are not reported, since discordance with absolute values may lead to misinterpretation of CBC data. Current Interpretive Data was last revised on 2017. Lymphocyte pct 14.9 % [facility] Comment: Interpretive Data Percent cell count reference ranges are not reported, since discordance with absolute values may lead to misinterpretation of CBC data. Current Interpretive Data was last revised on 2017. Monocyte pct 5.8 % [facility] Comment: Interpretive Data Percent cell count reference ranges are not reported, since discordance with absolute values may lead to misinterpretation of CBC data. Current Interpretive Data was last revised on 2017. Eosinophil pct 0.3 % [facility] Comment: Interpretive Data Percent cell count reference ranges are not reported, since discordance with absolute values may lead to misinterpretation of CBC data. Current Interpretive Data was last revised on 2017. Basophil pct 0.2 % [facility] Comment: Interpretive Data Percent cell count reference ranges are not reported, since discordance with absolute values may lead to misinterpretation of CBC data. Current Interpretive Data was last revised on 2017. Blood 03/11/2025 4:18 PM CDT 03/11/2025 6:21 PM CDT Jessee Frias MD LAB BLOOD ORDERABLES Final Result Performing Organization Address [facility] Co de Phone Number [facility] [address] [facility] Department [place] [address] * Thyroid Function [place] (03/11/2025 4:18 PM CDT) TSH 0.68 0.30 - 4.20 mcIUnit/mL Blood 03/11/2025 4:18 PM CDT 03/11/2025 6:21 PM CDT Jessee Frias MD LAB BLOOD ORDERABLES Final Result [address] [place] [address] * (ABNORMAL) CBC with auto differential (03/11/2025 4:18 PM CDT) [facility] WBC 9.73 3.80 - 9.90 K/cumm Hgb 12.5 11.9 - 15.5 g/dL [facility] Hct 39.2 35.6 - 45.5 % [facility] Plt 242 150 - 400 K/cumm [facility] MPV 11.1 9.1 - 12.3 fL [facility] RBC 4.24 3.90 - 5.20 M/cumm [facility] MCV 92.5 81.3 - 96.4 fL [facility] MCH 29.5 27.1 - 33.3 pg [facility] MCHC 31.9(L) 32.3 - 35.7 g/dL [facility] RDW CV 15.4(H) 11.1 - 14.9 % [facility] RDW SD 52.2(H) 35.7 - 48.1 fL [facility] NRBC abs 0.00 0.00 - 0.01 K/cumm [facility] Blood 03/11/2025 4:18 PM CDT 03/11/2025 6:21 PM CDT Jessee Frias MD LAB BLOOD ORDERABLES Final Result [address] [place] [address] * Hepatitis B core antibody, total Blood (03/11/2025 4:18 PM CDT) [facility] Hep B core IgG/IgM Nonreactive Nonreactive Comment:Testing performed by : [facility], [address] [facility], [place]., [address] Blood 03/11/2025 4:18 PM CDT 03/11/2025 9:09 PM CDT Jessee Frias MD LAB MICROBIOLOGY - GENERAL ORDERABLES Final Result Performing Organization Address City/[facility] Co de Phone Number [facility] [address] [place] [address] * Vitamin D 25 hydroxy (03/11/2025 4:18 PM CDT) [facility] Vitamin D 25-OH 52.0 30.0 - 80.0 ng/mL Blood 03/11/2025 4:18 PM CDT 03/11/2025 6:21 PM CDT Jessee Frias MD LAB BLOOD ORDERABLES Final Result Performing Organization Address [facility] Co de Phone Number LUIS ANTONIO[address] [address] * Hepatitis B surface antibody (immune status) Blood (03/11/2025 4:18 PM CDT) [facility] HBsAb (immune status) Nonreactive Comment: Interpretive Data Nonreactive: This result is consistent with a lack of immunity to Hepatitis B Virus when used in the setting of routine screening. Equivocal: The immune status of the individual should be further assessed, if appropriate, after consideration of clinical status, risk factors, and additional diagnostic information. Reactive: This result is consistent with immunity to Hepatitis B Virus when used in the setting of routine screening. Current interpretive data was last revised on 19. Blood 03/11/2025 4:18 PM CDT 03/11/2025 6:21 PM CDT Jessee Frias MD LAB MICROBIOLOGY - GENERAL ORDERABLES Final Result Performing Organization Address [facility] Co de Phone Number LUIS ANTONIO[address] [place] [address] * Hepatitis B Surface Antigen Blood (03/11/2025 4:18 PM CDT) [facility] HepBsAg Nonreactive Nonreactive Blood 03/11/2025 4:18 PM CDT 03/11/2025 6:21 PM CDT Jessee Frias MD LAB MICROBIOLOGY - GENERAL ORDERABLES Final Result Performing Organization Address City/[facility] Co de Phone Number NIKKO [address] [address] * Urine culture Urine, clean voided (03/11/2025 4:18 PM CDT) Report Final Report: Less than 100,000 colonies/mL (clinically insignificant growth based on current clinical standards) Comment:Testing performed by : [facility], [address] [place]., [address] Organism (CLINICALLY INSIGNIFICANT GROWTH [facility] Urine, clean voided 03/11/2025 4:18 PM CDT 03/11/2025 9:31 PM CDT Narrative NIKKO - 03/13/2025 8:01 AM CDT Testing performed by [facility] Microbiology Laboratory ([phone]) Jessee Frias MD LAB MICROBIOLOGY - GENERAL ORDERABLES Final Result Performing Organization Address City/[facility] Co de Phone Number [facility] [address] [address] * Lipid panel (03/11/2025 4:18 PM CDT) Cholesterol 192 30 - 199 mg/dL Comment: Interpretive Data Ages < or = 19 years Acceptable: <170 mg/dL Borderline high: 170-199 mg/dL High: >or= 200 mg/dL Ages > or = 20 years Desirable: <200 mg/dL Borderline high: 200-239 mg/dL High: >or= 240 mg/dL Literature References: 1. Expert Panel on Integrated Guidelines for Cardiovascular Health and Risk Reduction in Children and Adolescents. Pediatrics 2011;128:S213 2. NCEP Expert Panel. Circulation 2004;110:227 Current Interpretive Data was last revised on 2018. Triglycerides 73 <=149 mg/dL [facility] Comment: Interpretive Data Ages < or = 9 years Acceptable: <75 mg/dL Borderline high: 75-99 mg/dL High: >or= 100 mg/dL Ages 10 to 20 years Acceptable: <90 mg/dL Borderline high: 90-129 mg/dL High: >or= 130 mg/dL Ages > or = 20 years Desirable: <150 mg/dL Borderline high: 150-199 mg/dL High: 200-499 mg/dL Very high: >or= 499 mg/dL Literature References: 1. Expert Panel on Integrated Guidelines for Cardiovascular Health and Risk Reduction in Children and Adolescents. Pediatrics 2011;128:S213 2. NCEP Expert Panel. Circulation 2004;110:227 Current Interpretive Data was last revised on 2018. HDL 71 >=40 mg/dL [facility] Comment: Interpretive Data Ages < or = 19 years Acceptable: >45 mg/dL Borderline low: 40-45 mg/dL Low: <40 mg/dL Ages > or = 20 years Desirable: >or= 60 mg/dL Low: <40 mg/dL Literature References: 1. Expert Panel on Integrated Guidelines for Cardiovascular Health and Risk Reduction in Children and Adolescents. Pediatrics 2011;128:S213 2. NCEP Expert Panel. Circulation 2004;110:227 Current Interpretive Data was last revised on 2018. LDL, calculated 108 <=129 mg/dL [facility] Comment: Interpretive Data Ages < or = 19 years Acceptable: <110 mg/dL Borderline high: 110-129 mg/dL High: >or= 130 mg/dL Ages > or = 20 years Optimal: <100 mg/dL Near optimal: 100-129 mg/dL Borderline high: 130-159 mg/dL High: >160 mg/dL Calculated using the Serafin LDL-C estimating equation. This equation was implemented on 2024. Prior to this date LDL-C was estimated using the Friedewald equation. Literature References: 1. Expert Panel on Integrated Guidelines for Cardiovascular Health and Risk Reduction in Children and Adolescents. Pediatrics 2011;128:S213 2. NCEP Expert Panel. Circulation 2004;110:227 3. Serafin Card al. MARCIO Cardiol. 2020 October 10;5(5):540-548. doi: 10.1001/jamacardio.2020.0013 Current Interpretive Data was last revised on 2024. Non-HDL Cholesterol 121 mg/dL [facility] Comment: Interpretive Data Ages < or = 19 years Acceptable: <120 mg/dL Borderline high: 120-144 mg/dL High: >145 mg/dL Ages > or = 20 years When triglycerides are >200 mg/dL, Non-HDL cholesterol is a secondary target of therapy with treatment goals that are 30 mg/dL greater than the LDL cholesterol target. Literature References: 1. Expert Panel on Integrated Guidelines for Cardiovascular Health and Risk Reduction in Children and Adolescents. Pediatrics 2011;128:S213 2. NCEP Expert Panel. Circulation 2004;110:227 Current Interpretive Data was last revised on 2018. Chol/HDL ratio 3 [facility] Blood 03/11/2025 4:18 PM CDT 03/11/2025 6:21 PM CDT Jessee Frisa MD LAB BLOOD ORDERABLES Final Result [facility] [address] [facility] Department [place] [address] * Comprehensive metabolic panel (03/11/2025 4:18 PM CDT) Sodium 141 135 - 145 mmol/L Potassium, pl 3.8 3.3 - 4.9 mmol/L [facility] Chloride 103 97 - 110 mmol/L [facility] CO2 25 22 - 32 mmol/L [facility] Anion gap 13 2 - 15 mmol/L [facility] BUN 16 6 - 25 mg/dL [facility] Creatinine 0.76 0.60 - 1.10 mg/dL [facility] Glucose 100 70 - 199 mg/dL [facility] Comment: Interpretive Data Fasting glucose >/= 126 mg/dl is diagnostic for diabetes. Fasting is defined as no caloric intake for at least 8 hours. Fasting glucose between 100 mg/dl to 125 mg/dl is diagnostic of prediabetes. In a patient with classic symptoms of hyperglycemia or hyperglycemic crisis, a random glucose >/= 200 mg/dl is diagnostic for diabetes. In the absence of unequivocal hyperglycemia, results should be confirmed by repeat testing. The classification and Diagnosis of Diabetes Diabetes Care 2021; 46: S19-S40. Current interpretive data was last revised 2022. Calcium 10.2 8.5 - 10.3 mg/dL [facility] Bilirubin, total 0.6 0.1 - 1.2 mg/dL [facility] Protein, pl 8.2 6.5 - 8.5 g/dL [facility] Albumin 4.2 3.5 - 5.0 g/dL [facility] Alk phos 95 40 - 130 Units/L [facility] ALT 9 7 - 45 Units/L [facility] AST 15 10 - 45 Units/L [facility] Blood 03/11/2025 4:18 PM CDT 03/11/2025 6:21 PM CDT Jessee Frias MD LAB BLOOD ORDERABLES Final Result [facility] [facility] Department [place] [address] * (ABNORMAL) POCT UA, AUTO W/O SCOPE (03/11/2025 3:45 PM CDT) Color, Urine, POC Yellow Clarity, ur, POC Clear Clear Glucose, ur, POC Negative Negative Bilirubin, ur, POC Negative Negative Ketones, ur, POC Trace(A) Negative Specific [place], POC 1.020 1.003 - 1.030 Blood, ur, POC Trace(A) Negative pH, ur, POC 6.5 5.0 - 8.0 Protein, ur, POC 30.(A) Negative Urobilinogen, Urine, POC 0.2 <2 MG/DL Leukocytes, ur, POC Small(A) Negative Nitrite, ur, POC Negative Negative Appearance, fld Clear Clear Urine, clean voided 03/11/2025 3:45 PM CDT Jessee Frias MD POINT OF CARE TEST ORDERABL ES Final Result from Last 3 Months Insurance [facility] MEDICARE ADVANTAGE UHC MEDICARE ADVANTAGE Care Teams Plant Physiologist Relationship Specialty Start Date End Date Jessee Frias MD [address] [address] PCP - General Family Medicine 01/04/23
== END 2025-03-18 10:24 | disposition home or self-care (01) ==
LOC: CHSIMG 10:27
PROVIDERS: PCP Family Medicine; Visit Provider Family Medicine
DX: N63.15 Unspecified lump in the right breast, overlapping quadrants (principal); R92.8 Other abnormal and inconclusive findings on diagnostic imaging of breast; R59.0 Localized enlarged lymph nodes
CPT/HCPCS: 76642; 77062; 77066; G0279